=== PATIENT | male | born 1980 | race Caucasian/White ===

== ENCOUNTER 2018-12-23 08:22 | Inpatient (IN) | payer OTHER ==
[2018-12-23 08:47] VITALS: BMI 20.7
--- NOTE | 2018-12-23 09:21 | HP ---
COWS - Scale Resting Pulse: 0= [place] 80 or Below Sweatin= Chills/Flushing Restless Observation: 1= Difficult to Sit Still Pupil Size: 0= Normal to Room Light Bone or Joint Aches: 0= None Runny Nose/ Eye Tearin= Runny Nose/Eyes GI Upset > 30mins: 2= Nausea/Diarrhea Tremor Observation: 0= None Yawning Observation: 1= 1-2x During Session Anxiety or Irritability: 2=Irritable/Anxious Goose Flesh Skin: 0=Smooth Skin COWS Score: 9 CIWA Score - Admission Criteria OASAS Guidelines: Admission for Medically Managed Detox: Requires at least one of the followin. CIWA greater than 12 2. Seizures within the past 24 hours 3. Delirium tremens within the past 24 hours 4. Hallucinations within the past 24 hours 5. Acute intervention needed for co occurring medical disorder 6. Acute intervention needed for co occurring psychiatric disorder 7. Severe withdrawal that cannot be handled at a lower level of care (continued vomiting, continued diarrhea, abnormal vital signs) requiring intravenous medication and/or fluids 8. Admission ROS [facility] Allergies/Adverse Reactions: Allergies Allergy/AdvReac Type Severity Reaction Status Date / Time No Known Allergies Allergy Verified 12/23/18 08:36 History of Present Illness: pt here requesting detox from heroin , reports 7-8 bags/day ivdu in [place] , needles from pharmacy , denies sharing , or re-using, + abscess , denies OD . First age of use 12 , sober 15 , relapsed " I don't remember when " . Latest used 2 am , current symptoms as above. Previously in [facility] 8 years ago MDD 60 mg x 2 =3 years, completed program. Prior detox " a long time ago " . states went to [facility] this morning and was picked up by chair car driver and brought to this facility , did not see medical staff @ [place] . cocaine : as above ivdu xanax - rx tobacco : 6 cigs/day cannabis : occasional etoh : denies denies other illicits This report was requested by: Marissa Messina | Reference #: [id number] Others' Prescriptions Patient Name: Jakub Larios Date: 1980 Address: [address] [place] [address] Sex: Male Rx Written Rx Dispensed Drug Quantity Days Supply Prescriber Name 08/11/2018 08/11/2018 alprazolam 1 mg tablet 60 30 Destin Morelos MD 08/11/2018 08/11/2018 zolpidem tartrate 10 mg tablet 30 30 Destin Morelos MD 07/14/2018 07/14/2018 alprazolam 1 mg tablet 60 30 Destin Morelos MD 07/14/2018 07/14/2018 zolpidem tartrate 10 mg tablet 30 30 Destin Morelos MD 06/09/2018 06/15/2018 zolpidem tartrate 10 mg tablet 30 30 Destin Morelos MD 06/09/2018 06/15/2018 alprazolam 1 mg tablet 60 30 Destin Morelos MD 05/19/2018 05/19/2018 alprazolam 0.5 mg tablet 60 30 Destin Morelos MD 05/19/2018 05/19/2018 zolpidem tartrate 10 mg tablet 30 30 Destin Morelos MD 01/11/2018 01/11/2018 alprazolam 0.5 mg tablet 60 30 Destin Morelos MD * - Drugs marked with an asterisk are compound drugs. If the compound drug is made up of more than one controlled substance, then each controlled pmhx : denies pshx : left inguinal hernia 5 yrs ago psych : depression , bipolar d/o , denies SI / HI shx : homeless Exam Limitations: No Limitations - Ebola screening Have you traveled outside of the country in the last 21 days: No Have you had contact with anyone from an Ebola affected area: No - Review of Systems Constitutional: No Symptoms Reported EENT: reports: See HPI Respiratory: reports: No Symptoms reported Cardiac: reports: No Symptoms Reported GI: reports: See HPI : reports: No Symptoms Reported Musculoskeletal: reports: No Symptoms Reported Integumentary: reports: No Symptoms Reported Neuro: reports: No Symptoms reported Endocrine: reports: No Symptoms Reported Psychiatric: reports: Orientated x3, Anxious Patient History - Smoking Cessation Smoking history: Current every day smoker Have you smoked in the past 12 months: Yes Hx Chewing Tobacco Use: No Initiated information on smoking cessation: No - Substances abused Cocaine Substance route: Injection Frequency: Daily Amount used: 7 bags Age of first use: 12 Heroin Substance route: Injection Frequency: Daily Amount used: 7 bags Age of first use: 12 Family Disease History - Family Disease History Family History: Denies Admission Physical Exam [facility] - Vital Signs Vital Signs: Vital Signs - 24 hr 12/23/18 12/23/18 08:43 09:09 Temperature 98.2 F 98.2 F Pulse Rate 64 64 Respiratory 18 18 Rate Blood Pressure 126/69 126/69 - Physical General Appearance: Yes: No Apparent Distress HEENTM: Yes: EOMI, Hearing grossly Normal, Normocephalic, Normal Voice, Nasal Congestion, Rhinorrhea Respiratory: Yes: Lungs Clear, Normal Breath Sounds, No Respiratory Distress, No Accessory Muscle Use Neck: Yes: No masses,lesions,Nodules, Trachea in good position Cardiology: Yes: Regular Rhythm, Regular Rate, S1, S2 Abdominal: Yes: Non Tender, Soft Musculoskeletal: Yes: Gait Steady Extremities: Yes: Non-Tender Neurological: Yes: Fully Oriented, Alert, Motor Strength 5/5, Normal Mood/Affect Integumentary: Yes: Track Rios, Other (left antecubital area of edema @ IVDU site , no erythema, no tenderness right antecubital area of scarring from previous abscess .) - Diagnostic (1) Opioid dependence Current Visit: Yes Status: Acute Qualifiers: Substance use status: with intoxication (2) Cocaine dependence Current Visit: Yes Status: Chronic Qualifiers: Substance use status: uncomplicated Qualified Code(s): F14.20 - Cocaine dependence, uncomplicated (3) Nicotine dependence Current Visit: Yes Status: Acute Qualifiers: Nicotine product type: cigarettes Cleared for Admission [facility] - Detox or Rehab [facility] Level of Care: Medically Supervised 2Day Detox Regimen/Protocol: Methadone Breathalyzer - Breathalyzer Breathalyzer: 0 Urine Drug Screen - Test Device Lot number: [id number] Expiration date: 09/29/19 - Control Is test valid?: Yes - Results Drug screen NEGATIVE: No Urine drug screen results: THC-Marijuana, MICHELLE-Cocaine, MOP-Opiates, BZO- Benzodiazepines Inpatient Rehab Admission - Rehab Decision to Admit Inpatient rehab admission?: No
[2018-12-23] MEDS ORDERED: MAGNESIUM CITRATE 300 ML BOTTLE PO PRN (09:37)
[2018-12-23] MEDS ORDERED: ACETAMINOPHEN 325 MG TABLET (FP) PO PRN ×2 (09:37)
[2018-12-23] MEDS ORDERED: MENTHOL/PHENOL 1 EACH UD MM PRN (09:37)
[2018-12-23] MEDS ORDERED: IBUPROFEN 400 MG TABLET (FP) PO PRN (09:37)
[2018-12-23] MEDS ORDERED: BISMUTH SUBSALICYLATE 262 MG/15 ML BTL PO PRN (09:37)
[2018-12-23] MEDS ORDERED: MELATONIN 5 MG TABLETS PO PRN (09:37)
[2018-12-23] MEDS ORDERED: MAGNESIUM HYDROX 2400MG/30ML ORAL SUSPENSION 30 ML CUP PO PRN (09:37)
[2018-12-23] MEDS ORDERED: NICOTINE POLACRILEX 2 MG GUM BUC PRN (09:37)
[2018-12-23] MEDS ORDERED: MAG HYDROX/AL HYDROX/SIMETH 30 ML UNIT-DOSE CUP PO PRN (09:37)
[2018-12-23] MEDS ORDERED: cloNIDine HCL 0.1 MG TABLET PO PRN (11:37)
[2018-12-23] MEDS ORDERED: METHADONE HCL 10 MG TABLET (FOR DETOX USE ONLY) PO ONE (11:37)
[2018-12-23] MEDS: PRENATAL VITAMINS W/ FOLIC ACID TABLET (FP) PO SCH (12:00)
[2018-12-23] MEDS: BACITRACIN/POLYMYXIN B SULFATE 15 GM TUBE TP SCH ×2 (12:00→21:09)
--- NOTE | 2018-12-23 14:29 | CONSULT ---
[facility] Psychiatric Consult - Data Date of interview: 12/23/18 Admission source: [facility] Identifying data: First admission to [facility] for this 38 y/o male self-referred for detoxification (heroin, cocaine). Seen at [address] [place] [address]. Patient is single, a father of four, homeless, unemployed and supporetd on SSI benefits. Substance Abuse History: Confirmed by patient in this interview. Details in current [facility] report as follows : Smoking history: Current every day smoker. Have you smoked in the past 12 months: Yes. Hx Chewing Tobacco Use: No. Initiated information on smoking cessation: No. - Substances abused. Cocaine. Substance route: Injection. Frequency: Daily. Amount used: 7 bags. Age of first use: 12. Heroin. Substance route: Injection. Frequency: Daily. Amount used: 7 bags. Age of first use: 12 Medical History: Patient endorses good general health. Noted history of left inguinal herniorraphy. Psychiatric History: Patient admits to a history of multiple psychiatric hospitalizations ([facility], [facility], [facility]) . Diagnosed with Bipolar Disorder. Mr Larios is currently followed, by Dr Morelos, at [facility] in the [place]. Maintained on seroquel 400 mg/hs. Significant history of suicide attempts via self-mutilation (scars visible on upper extremities + abdomen). Physical/Sexual Abuse/Trauma History: Patient denies. Additional Comment: Urine drug screen results: THC-Marijuana, MICHELLE-Cocaine, MOP- Opiates, BZO-Benzodiazepines. Noted. Mental Status Exam - Mental Status Exam Alert and Oriented to: Time, Place, Person Cognitive Function: Good Patient Appearance: Unkempt, Disheveled Mood: Nervous, Withdrawn Affect: Mood Congruent, Constricted Patient Behavior: Fatigued, Appropriate, Cooperative Speech Pattern: Clear, Appropriate (bilingual) Voice Loudness: Normal Thought Process: Goal Oriented Thought Disorder: Not Present Hallucinations: Denies Suicidal Ideation: Denies Homicidal Ideation: Denies Insight/Judgement: Poor Sleep: Poorly, Difficulty falling asleep Appetite: Good Muscle strength/Tone: Normal Gait/Station: Normal Psychiatric Findings - Problem List ([place] 1, 2,3) (1) Opioid dependence Current Visit: Yes Status: Chronic Qualifiers: Substance use status: with intoxication (2) Cocaine dependence Current Visit: Yes Status: Chronic Qualifiers: Substance use status: uncomplicated Qualified Code(s): F14.20 - Cocaine dependence, uncomplicated (3) Nicotine dependence Current Visit: Yes Status: Chronic Qualifiers: Nicotine product type: cigarettes (4) Substance induced mood disorder Current Visit: Yes Status: Chronic (5) History of bipolar disorder Current Visit: Yes Status: Chronic - Initial Treatment Plan Initial Treatment Plan: Psychoeducation. Sleep hygiene. Detoxification. NA meetings. Seroquel 200 mg po hs (resumed at the patient's specific request). Mr Larios gave verbal consent to MD. Bryson.
--- NOTE | 2018-12-23 14:41 | EKG ---
Test Reason : Blood Pressure : / mmHG Vent. Rate : 058 BPM Atrial Rate : 058 BPM P-R Int : 116 ms QRS Dur : 104 ms QT Int : 450 ms P-R-T Axes : 081 042 055 degrees QTc Int : 441 ms SINUS BRADYCARDIA INCOMPLETE RIGHT BUNDLE BRANCH BLOCK BORDERLINE ECG NO PREVIOUS ECGS AVAILABLE Confirmed by WHIT TROY, RASTA ([id number]) on 12/23/2018 2:40:53 PM Referred By: Confirmed By:RASTA SHERMAN MD
[2018-12-23] MEDS: hydrOXYzine HCL 25 MG TABLET (FP) PO PRN (21:08)
[2018-12-23] MEDS ORDERED: QUEtiapine FUMARATE 200 MG TABLET PO SCH (22:00)
[2018-12-23] MEDS ORDERED: THIAMINE HCL 100 MG TABLET (FP) PO SCH (22:00)
[2018-12-24] MEDS ORDERED: METHADONE HCL 5 MG TABLET (FOR DETOX USE ONLY) PO ONE (10:00)
[2018-12-24] MEDS: BACITRACIN/POLYMYXIN B SULFATE 15 GM TUBE TP SCH (10:01)
[2018-12-24] MEDS: PRENATAL VITAMINS W/ FOLIC ACID TABLET (FP) PO SCH (10:04)
[2018-12-24 10:41] LABS: HEMATOCRIT 32.1 % (35.4-49); HEMOGLOBIN 10.7 GM/dL (11.7-16.9); MCH 27.9 pg (25.7-33.7); MCHC 33.4 g/dl (32.0-35.9); MEAN CELL VOLUME 83.5 fl (80-96); MEAN PLT VOLUME 7.5 fl (7.5-11.1); PLATELET COUNT 376 K/MM3 (134-434); RBC 3.84 M/mm3 (4.00-5.60); RDW 14.4 % (11.9-15.9); WHITE BLOOD COUNT 8.2 K/mm3 (4.0-10.0)
[2018-12-24 11:22] LABS: ALBUMIN 2.8 g/dl (3.4-5.0); BILIRUBIN,TOTAL 0.2 mg/dL (0.2-1); BLOOD UREA NITROGEN 15.1 mg/dL (7-18); CALCIUM 8.6 mg/dL (8.5-10.1); CREATININE 0.8 mg/dL (0.55-1.3); POTASSIUM 3.8 mmol/L (3.5-5.1); TOT PROT 6.3 g/dl (6.4-8.2)
[2018-12-24] MEDS: hydrOXYzine HCL 25 MG TABLET (FP) PO PRN (13:14)
--- NOTE | 2018-12-24 17:10 | PN ---
BHS COWS - Scale Resting Pulse: 0= [place] 80 or Below Sweatin= Chills/Flushing Restless Observation: 1= Difficult to Sit Still Pupil Size: 0= Normal to Room Light Bone or Joint Aches: 0= None Runny Nose/ Eye Tearin= None GI Upset > 30mins: 0= None Tremor Observation of Outstretched Hands: 0= None Yawning Observation: 1= 1-2x During Session Anxiety or Irritability: 2=Irritable/Anxious Goose Flesh Skin: 3=Piloerection COWS Score: 8 BHS Progress Note (SOAP) Subjective: Interrupted Sleep, Anxious. Objective: PATIENT A & O X 2 (UNCERTAIN ABOUT CURRENT DAY / DATE). PATIENT OBSERVED AMBULATING ON UNIT UNASSISTED. IN NO ACUTE DISTRESS. 12/24/18 17:12 Vital Signs Temperature 97.4 F L 12/24/18 13:30 Pulse Rate 75 12/24/18 13:30 Respiratory Rate 18 12/24/18 13:30 Blood Pressure 125/80 12/24/18 13:30 O2 Sat by Pulse Oximetry (%) Laboratory Tests 12/24/18 12/24/18 12/24/18 07:30 07:30 07:30 WBC 8.2 RBC 3.84 L Hgb 10.7 L Hct 32.1 L MCV 83.5 MCH 27.9 MCHC 33.4 RDW 14.4 Plt Count 376 MPV 7.5 Sodium 142 Potassium 3.8 Chloride 110 H Carbon Dioxide 29 Anion Gap 4 L BUN 15.1 Creatinine 0.8 Est GFR (CKD-EPI)AfAm 129.51 Est GFR (CKD-EPI)NonAf 111.74 Random Glucose 96 Calcium 8.6 Total Bilirubin 0.2 AST 16 ALT 25 Alkaline Phosphatase 93 Total Protein 6.3 L Albumin 2.8 L RPR Titer Nonreactive HIV 1&2 Antibody Screen HIV P24 Antigen 12/24/18 07:30 WBC RBC Hgb Hct MCV MCH MCHC RDW Plt Count MPV Sodium Potassium Chloride Carbon Dioxide Anion Gap BUN Creatinine Est GFR (CKD-EPI)AfAm Est GFR (CKD-EPI)NonAf Random Glucose Calcium Total Bilirubin AST ALT Alkaline Phosphatase Total Protein Albumin RPR Titer HIV 1&2 Antibody Screen Negative HIV P24 Antigen Negative LABS NOTED. Assessment: 12/24/18 17:12 WITHDRAWAL SYMPTOMS. ANEMIA. Plan: CONTINUE DETOX. PATIENT IS CURRENTLY RECEIVING DAILY MVI CONTAINING B VITAMINS AND IRON WHILE ADMITTED FOR DETOX.
[2018-12-24 18:34] VITALS: BP 131/86; PULSE 73; TEMP 99.7
--- NOTE | 2018-12-24 19:39 | PN ---
BHS Progress Note Note: Refused to stay, despite encouragement. Given copy of labs and EKG. Encouraged to f/u w/ PCP and MH Provider.
--- NOTE | 2018-12-24 19:39 | DS ---
[facility] Detox Discharge Summary Admission Date: 12/23/18 Discharge Date: 12/24/18 - History Present History: Cannabis Dependence, Cocaine Dependence, Opioid Dependence Additional Comments: pt here requesting detox from heroin. Reports 7-8 bags/day IVDU Pertinent Past History: Heroin use disorder since age 12. Previously in [facility] 8 years . Cocaine use disorder since age 12. ivdu Tobacco : 6 cigs/day Cannabis : occasional - Physical Exam Results Vital Signs: Vital Signs Temperature 99.7 F H 12/24/18 18:32 Pulse Rate 73 12/24/18 18:32 Respiratory Rate 16 12/24/18 18:32 Blood Pressure 131/86 12/24/18 18:32 O2 Sat by Pulse Oximetry (%) Pertinent Admission Physical Exam Findings: Patient admitted to detox w/ opioid withdrawal symptoms. Laboratory Last Values WBC 8.2 K/mm3 (4.0-10.0) 12/24/18 07:30 RBC 3.84 M/mm3 (4.00-5.60) L 12/24/18 07:30 Hgb 10.7 GM/dL (11.7-16.9) L 12/24/18 07:30 Hct 32.1 % (35.4-49) L 12/24/18 07:30 MCV 83.5 fl (80-96) 12/24/18 07:30 MCH 27.9 pg (25.7-33.7) 12/24/18 07:30 MCHC 33.4 g/dl (32.0-35.9) 12/24/18 07:30 RDW 14.4 % (11.9-15.9) 12/24/18 07:30 Plt Count 376 K/MM3 (134-434) 12/24/18 07:30 MPV 7.5 fl (7.5-11.1) 12/24/18 07:30 Sodium 142 mmol/L (136-145) 12/24/18 07:30 Potassium 3.8 mmol/L (3.5-5.1) 12/24/18 07:30 Chloride 110 mmol/L (98-107) H 12/24/18 07:30 Carbon Dioxide 29 mmol/L (21-32) 12/24/18 07:30 Anion Gap 4 MMOL/L (8-16) L 12/24/18 07:30 BUN 15.1 mg/dL (7-18) 12/24/18 07:30 Creatinine 0.8 mg/dL (0.55-1.3) 12/24/18 07:30 Est GFR (CKD-EPI)AfAm 129.51 12/24/18 07:30 Est GFR (CKD-EPI)NonAf 111.74 12/24/18 07:30 Random Glucose 96 mg/dL (74-106) 12/24/18 07:30 Calcium 8.6 mg/dL (8.5-10.1) 12/24/18 07:30 Total Bilirubin 0.2 mg/dL (0.2-1) 12/24/18 07:30 AST 16 U/L (15-37) 12/24/18 07:30 ALT 25 U/L (13-61) 12/24/18 07:30 Alkaline Phosphatase 93 U/L (45-117) 12/24/18 07:30 Total Protein 6.3 g/dl (6.4-8.2) L 12/24/18 07:30 Albumin 2.8 g/dl (3.4-5.0) L 12/24/18 07:30 RPR Titer Nonreactive (NONREACTIVE) 12/24/18 07:30 HIV 1&2 Antibody Screen Negative 12/24/18 07:30 HIV P24 Antigen Negative 12/24/18 07:30 Labs reviewed. Patient encouraged to f/u w/ PCP. - Treatment Hospital Course: Detox Protocol Followed (Patient did not complete detox protocol) - Medication Discharge Medications: Ambulatory Orders Ambien 10 mg PO HS 12/23/18 Quetiapine Fumarate "Xr" [Seroquel Xr -] 400 mg PO BID 12/23/18 - Diagnosis (1) Opioid dependence with withdrawal Status: Acute (2) Cocaine dependence Status: Chronic Qualifiers: Substance use status: uncomplicated Qualified Code(s): F14.20 - Cocaine dependence, uncomplicated (3) History of bipolar disorder Status: Chronic (4) Nicotine dependence Status: Chronic Qualifiers: Nicotine product type: cigarettes - AMA Did Patient Leave Against Medical Advice: Yes (Refused to stay, despite encouragement.)
[2018-12-25] MEDS ORDERED: METHADONE HCL 10 MG TABLET (FOR DETOX USE ONLY) PO ONE (10:00)
[2018-12-26] MEDS ORDERED: METHADONE HCL 5 MG TABLET (FOR DETOX USE ONLY) PO ONE (06:00)
== END 2018-12-24 19:30 | disposition left against medical advice (07) | DRG 770 ==
LOC: YASAS 08:22 → Y3N 10:00
PROVIDERS: ADMIT Surgery; ATTEND Surgery
PROC: HZ2ZZZZ Detoxification Services for Substance Abuse Treatment (ICD-10-PCS; principal; 2018-12-23)
DX: F11.23 Opioid dependence with withdrawal (principal); F14.20 Cocaine dependence, uncomplicated; F12.20 Cannabis dependence, uncomplicated; F17.210 Nicotine dependence, cigarettes, uncomplicated; F19.24 Other psychoactive substance dependence with psychoactive substance-induced mood disorder; D64.9 Anemia, unspecified; Z86.59 Personal history of other mental and behavioral disorders
CPT/HCPCS: 36415; 80053; 85027; 86593; 87389; 93005; 93010

== ENCOUNTER 2019-02-05 09:11 | Inpatient (IN) | payer OTHER ==
[2019-02-05 10:20] VITALS: BMI 21.2
--- NOTE | 2019-02-05 12:13 | HP ---
"COWS - Scale Resting Pulse: 0= [place] 80 or Below Sweatin= Chills/Flushing Restless Observation: 1= Difficult to Sit Still Pupil Size: 0= Normal to Room Light Bone or Joint Aches: 1= Mild Discomfort Runny Nose/ Eye Tearin= Runny Nose/Eyes GI Upset > 30mins: 2= Nausea/Diarrhea Tremor Observation: 2= Slight Tremor Visible Yawning Observation: 1= 1-2x During Session Anxiety or Irritability: 2=Irritable/Anxious Goose Flesh Skin: 3=Piloerection COWS Score: 15 Admission ROS BHS - HPI Chief Complaint: I want to stop feeling like shit, like garbage, I'm tired of living my life to keep on this shit Allergies/Adverse Reactions: Allergies Allergy/AdvReac Type Severity Reaction Status Date / Time No Known Allergies Allergy Verified 12/23/18 08:36 History of Present Illness: 38 yo gentleman here for detox from opiates. Urine tox + oxy, methamamphetamine and methadone but denies using these separately - states mixed together with heroin. Denies drinking alcohol. No seizures or overdose but does have black outs. History of methadone program years ago - cannot remember when or why he stopped going but wants to go back on a methadone program. States he was in [place] ED yesterday seeking detox and was referred here. Last here December 23but only stayed one day- states he will complete treatment this time. He is homeless, lives in a fci. Patient with multiple scabbed lesions on his body - states he saw a doctor who told him it was related to his drug use as he constantly picks and scratches at himself. No longer getting prescribed xanax (see below [facility]) - buys on street when he can get it. [facility] Search Terms: jakub larios, 1980 Search Date: 02/05/2019 12:08:05 PM The Drug Utilization Report below displays all of the controlled substance prescriptions, if any, that your patient has filled in the last twelve months. The information displayed on this report is compiled from pharmacy submissions to the Department, and accurately reflects the information as submitted by the pharmacies. This report was requested by: Sara Winters | Reference #: [id number] Others' Prescriptions Patient Name: Jakub Larios Date: 1980 Address: [address] [place] [address] Sex: Male Rx Written Rx Dispensed Drug Quantity Days Supply Prescriber Name 08/11/2018 08/11/2018 alprazolam 1 mg tablet 60 30 Destin Morelos MD 08/11/2018 08/11/2018 zolpidem tartrate 10 mg tablet 30 30 Destin Morelos MD 07/14/2018 07/14/2018 alprazolam 1 mg tablet 60 30 Destin Morelos MD 07/14/2018 07/14/2018 zolpidem tartrate 10 mg tablet 30 30 Destin Morelos MD 06/09/2018 06/15/2018 zolpidem tartrate 10 mg tablet 30 30 Destin Morelos MD 06/09/2018 06/15/2018 alprazolam 1 mg tablet 60 30 Destin Morelos MD 05/19/2018 05/19/2018 alprazolam 0.5 mg tablet 60 30 Destin Morelos MD 05/19/2018 05/19/2018 zolpidem tartrate 10 mg tablet 30 30 Destin Morelos MD * Exam Limitations: Clinical Condition - Ebola screening Have you traveled outside of the country in the last 21 days: No (N) Have you had contact with anyone from an Ebola affected area: No Do you have a fever: No - Review of Systems Constitutional: Chills, Loss of Appetite, Malaise, Changes in sleep, Weakness EENT: reports: Blurred Vision, Nose Congestion Respiratory: reports: Wheezing Cardiac: reports: No Symptoms Reported GI: reports: Constipated, Nausea, Indigestion, Abdominal cramping : reports: Dysuria Musculoskeletal: reports: Back Pain, Joint Pain, Muscle Pain Integumentary: reports: Lesions Neuro: reports: Headache, Tremors, Weakness Endocrine: reports: No Symptoms Reported Hematology: reports: No Symptoms Reported Psychiatric: reports: Judgement Intact, Mood/Affect Appropiate, Orientated x3, Anxious Other Systems: Reviewed and Negative Patient History - Patient Medical History Hx Asthma: No Hx Chronic Obstructive Pulmonary Disease (COPD): No Hx Cancer: No Hx Cardiac Disorders: No Hx Hypertension: No Hx Hypercholesterolemia: No Hx Pacemaker: No HX Cerebrovascular Accident: No Hx Seizures: No Hx Diabetes: No Hx Gastrointestinal Disorders: No Hx Liver Disease: Yes (treated hep C with oral meds) Hx Genitourinary Disorders: No Hx Sexually Transmitted Disorders: No Hx Renal Disease (ESRD): No Hx Thyroid Disease: No Hx Human Immunodeficiency Virus (HIV): No Hx Hepatitis C: Yes (treated) Hx Depression: Yes (hx hospitalizations - hx meds) Hx Suicide Attempt: Yes (age 10 slit wrists - ) Hx Bipolar Disorder: Yes Hx Schizophrenia: No - Patient Surgical History Past Surgical History: No Hx Neurologic Surgery: No Hx Cataract Extraction: No Hx Cardiac Surgery: No Hx Lung Surgery: No Hx Breast Surgery: No Hx Breast Biopsy: No Hx Abdominal Surgery: Yes (left hernia repair 2012) Hx Appendectomy: No Hx Cholecystectomy: No Hx Genitourinary Surgery: No Hx Section: No Hx Orthopedic Surgery: No Anesthesia Reaction: No - PPD History Previous Implant?: Yes (never read - patient left AMA) Documented Results: Negative w/o proof Implanted On Prior [facility] Admission?: Yes PPD to be Administered?: Yes - Reproductive History Patient is a Female of Child Bearing Age (11 -55 yrs old): No - Smoking Cessation Smoking history: Current every day smoker Have you smoked in the past 12 months: Yes Aproximately how many cigarettes per day: 6 Hx Chewing Tobacco Use: No Initiated information on smoking cessation: Yes 'Breaking Loose' booklet given: 02/05/19 (give on floor) - Substance & Tx. History Hx Alcohol Use: No Hx Substance Use: Yes Substance Use Type: Cocaine, Heroin, Marijuana, Opiates, Tranquilizers Hx Substance Use Treatment: Yes (detox, rehab, [facility]) - Substances abused Cocaine Substance route: Injection Frequency: Daily Amount used: 12 bags Age of first use: 12 Date of last use: 02/04/19 Heroin Substance route: Injection Frequency: Daily Amount used: 12-14 bags Age of first use: 12 Date of last use: 02/04/19 Marijuana/Hashish Substance route: Smoking Frequency: Daily Amount used: 2 blunts Age of first use: 10 Date of last use: 02/04/19 Alprazolam (Xanax) Substance route: Oral Frequency: 1-2 times per week Amount used: two 2mg pills Age of first use: 13 Date of last use: 02/03/19 Family Disease History - Family Disease History Family Disease History: Respiratory: Sister (two - living - asthma), Other: Father (, suicide), Mother (living - healthy ), Sister, Son (one - age 12 - healthy), Daughter (three ages 20,17,12 - healthy) Admission Physical Exam [facility] - Vital Signs Vital Signs: Vital Signs - 24 hr 02/05/19 10:16 Temperature 97.9 F Pulse Rate 56 L Respiratory 18 Rate Blood Pressure 98/61 - Physical General Appearance: Yes: Nourished, Appropriately Dressed, Moderate Distress, Thin, Tremorous, Anxious HEENTM: Yes: EOMI, Hearing grossly Normal, Normocephalic, Normal Voice, Pharynx Normal, Nasal Congestion, Rhinorrhea Respiratory: Yes: No Respiratory Distress, Rhonchi Neck: Yes: No masses,lesions,Nodules, Supple Breast: Yes: Breast Exam Deferred Cardiology: Yes: Regular Rhythm, Bradycardia Abdominal: Yes: Flat, Soft Genitourinary: Yes: Dysuria Back: Yes: Normal Inspection Musculoskeletal: Yes: full range of Motion, Gait Steady, Muscle Pain Extremities: Yes: Normal Inspection, Normal Range of Motion, Tremors Neurological: Yes: Fully Oriented, Alert, Normal Mood/Affect, Normal Response Integumentary: Yes: Normal Color, Warm, Track Rios (track rios left antecubital fossa -no abscess noted), Other (scattered skin lesions and scabs over arms, face, torso and legs - state chronic from crack use which makes him pick at himself) Lymphatic: Yes: Within Normal Limits - Diagnostic (1) Opioid dependence with withdrawal Current Visit: Yes Status: Chronic (2) Sedative, hypnotic or anxiolytic dependence with withdrawal, uncomplicated Current Visit: Yes Status: Chronic (3) Intravenous cocaine abuse Current Visit: Yes Status: Chronic (4) Cannabis dependence Current Visit: Yes Status: Chronic (5) Nicotine dependence Current Visit: Yes Status: Chronic Qualifiers: Nicotine product type: cigarettes Substance use status: uncomplicated Qualified Code(s): F17.210 - Nicotine dependence, cigarettes, uncomplicated (6) Skin lesion due to intravenous drug abuse Current Visit: Yes Status: Chronic (7) Hepatitis C virus infection cured after antiviral drug therapy Current Visit: Yes Status: Chronic Cleared for Admission [facility] - Detox or Rehab [facility] Level of Care: Medically Managed Detox Regimen/Protocol: Methadone Breathalyzer - Breathalyzer Breathalyzer: 0 Urine Drug Screen - Test Device Lot number: [id number] Expiration date: 10/29/20 - Control Is test valid?: Yes - Results Drug screen NEGATIVE: No Urine drug screen results: THC-Marijuana, MICHELLE-Cocaine, MET-Methamphetamine, FEN- Fentanyl, MOP-Opiates, OXY-Oxycodone, MTD-Methadone, BZO-Benzodiazepines Inpatient Rehab Admission - Rehab Decision to Admit Inpatient rehab admission?: No"
[2019-02-05] MEDS ORDERED: MENTHOL/PHENOL 1 EACH UD MM PRN (12:22)
[2019-02-05] MEDS ORDERED: METHADONE HCL 10 MG TABLET (FOR DETOX USE ONLY) PO ONE (12:22)
[2019-02-05] MEDS ORDERED: ACETAMINOPHEN 325 MG TABLET (FP) PO PRN ×2 (12:22)
[2019-02-05] MEDS ORDERED: IBUPROFEN 400 MG TABLET (FP) PO PRN (12:22)
[2019-02-05] MEDS ORDERED: MAGNESIUM CITRATE 300 ML BOTTLE PO PRN (12:22)
[2019-02-05] MEDS ORDERED: NICOTINE POLACRILEX 4 MG GUM BUC PRN (12:22)
[2019-02-05] MEDS ORDERED: hydrOXYzine PAMOATE 25 MG CAPSULE (FP) PO PRN (12:22)
[2019-02-05] MEDS ORDERED: MELATONIN 5 MG TABLETS PO PRN (12:22)
[2019-02-05] MEDS ORDERED: clonazePAM 0.5 MG TABLET PO PRN (12:22)
[2019-02-05] MEDS ORDERED: MAG HYDROX/AL HYDROX/SIMETH 30 ML UNIT-DOSE CUP PO PRN (12:22)
[2019-02-05] MEDS ORDERED: METHOCARBAMOL 500 MG TABLET PO PRN (12:22)
[2019-02-05] MEDS ORDERED: cloNIDine HCL 0.1 MG TABLET PO PRN (12:22)
[2019-02-05] MEDS ORDERED: MAGNESIUM HYDROX 2400MG/30ML ORAL SUSPENSION 30 ML CUP PO PRN (12:22)
[2019-02-05] MEDS ORDERED: BISMUTH SUBSALICYLATE 524 MG/30 ML UD PO PRN (12:22)
[2019-02-05] MEDS: MUPIROCIN 2% TOPICAL OINTMENT 22 GM TUBE TP SCH ×2 (19:22→22:59)
[2019-02-05] MEDS ORDERED: QUEtiapine FUMARATE 200 MG TABLET PO SCH (22:00)
[2019-02-05] MEDS: THIAMINE HCL 100 MG TABLET (FP) PO SCH (22:58)
[2019-02-06] MEDS ORDERED: METHADONE HCL 10 MG TABLET (FOR DETOX USE ONLY) ONE (09:50)
[2019-02-06] MEDS ORDERED: METHADONE HCL 5 MG TABLET (FOR DETOX USE ONLY) ONE (09:51)
[2019-02-06] MEDS ORDERED: METHADONE (DETOX) 20 MG, METHADONE (DETOX) 5 MG PO ONE (10:00)
[2019-02-06 10:21] LABS: BILIRUBIN,TOTAL 0.3 mg/dL (0.2-1); BLOOD UREA NITROGEN 13.2 mg/dL (7-18); CALCIUM 8.5 mg/dL (8.5-10.1); CREATININE 0.9 mg/dL (0.55-1.3); POTASSIUM 3.7 mmol/L (3.5-5.1); TOT PROT 6.3 g/dl (6.4-8.2)
[2019-02-06 10:24] LABS: HEMATOCRIT 33.9 % (35.4-49); MCH 27.8 pg (25.7-33.7); MCHC 32.4 g/dl (32.0-35.9); MEAN CELL VOLUME 85.9 fl (80-96); MEAN PLT VOLUME 7.9 fl (7.5-11.1); PLATELET COUNT 321 K/MM3 (134-434); RBC 3.94 M/mm3 (4.00-5.60); RDW 17.1 % (11.9-15.9); WHITE BLOOD COUNT 5.2 K/mm3 (4.0-10.0)
[2019-02-06] MEDS: MUPIROCIN 2% TOPICAL OINTMENT 22 GM TUBE TP SCH ×2 (11:00→21:52)
[2019-02-06] MEDS: PRENATAL VITAMINS W/ FOLIC ACID TABLET (FP) PO SCH (11:06)
--- NOTE | 2019-02-06 13:39 | PN ---
[facility] Progress Note Note: Patient approached at bedtime. He told food writer:" I don't feel well, I cannot talk now"
--- NOTE | 2019-02-06 14:36 | PN ---
BHS COWS - Scale Resting Pulse: 0= [place] 80 or Below Sweatin= Chills/Flushing Restless Observation: 3= Extraneous Movement Pupil Size: 0= Normal to Room Light Bone or Joint Aches: 2= Severe Diffuse Aches Runny Nose/ Eye Tearin= Runny Nose/Eyes GI Upset > 30mins: 2= Nausea/Diarrhea Tremor Observation of Outstretched Hands: 2= Slight Tremor Visible Yawning Observation: 0= None Anxiety or Irritability: 2=Irritable/Anxious Goose Flesh Skin: 0=Smooth Skin COWS Score: 14 BHS Progress Note (SOAP) Subjective: Angry, patient stated he has all withdrawal symptoms, refused to elaborate but remained angry Objective: 02/06/19 14:34 Last Vital Signs Temp Pulse Resp BP Pulse Ox 98.1 F 66 18 144/83 02/06/19 09:29 02/06/19 09:29 02/06/19 09:29 02/06/19 09:29 Elevated b/p 144/83 Laboratory Tests 02/06/19 02/06/19 02/06/19 08:00 08:00 08:00 WBC 5.2 RBC 3.94 L Hgb 11.0 L Hct 33.9 L MCV 85.9 MCH 27.8 MCHC 32.4 RDW 17.1 H Plt Count 321 MPV 7.9 Sodium 145 Potassium 3.7 Chloride 110 H Carbon Dioxide 29 Anion Gap 5 L BUN 13.2 Creatinine 0.9 Est GFR (CKD-EPI)AfAm 123.39 Est GFR (CKD-EPI)NonAf 106.46 Random Glucose 82 Calcium 8.5 Total Bilirubin 0.3 AST 35 ALT 42 Alkaline Phosphatase 100 Total Protein 6.3 L Albumin 3.0 L RPR Titer Nonreactive Labs reviewed: h/h 33.9 (mild anemia) Assessment: 02/06/19 14:35 Withdrawal sxs Plan: Continue detox Encouraged PO water intake
[2019-02-06] MEDS: COLLOIDAL OATMEAL 1 BAR EACH TP PRN (21:53)
[2019-02-06] MEDS: THIAMINE HCL 100 MG TABLET (FP) PO SCH (21:54)
[2019-02-07] MEDS ORDERED: METHADONE HCL 10 MG TABLET (FOR DETOX USE ONLY) PO ONE (10:00)
--- NOTE | 2019-02-07 10:00 | PN ---
BHS COWS - Scale Resting Pulse: 0= [place] 80 or Below Sweatin= Chills/Flushing Restless Observation: 1= Difficult to Sit Still Pupil Size: 0= Normal to Room Light Bone or Joint Aches: 1= Mild Discomfort Runny Nose/ Eye Tearin= Nasal Congestion GI Upset > 30mins: 1= Stomach Cramp Tremor Observation of Outstretched Hands: 2= Slight Tremor Visible Yawning Observation: 0= None Anxiety or Irritability: 1=Feels Anxious/Irritable Goose Flesh Skin: 0=Smooth Skin COWS Score: 8 BHS Progress Note (SOAP) Subjective: Patient improved and now with mild withdrawals. Only concern is his chronic skin condition. Objective: 02/07/19 09:59 BP: 118/75 P:75 R:18 T:97.9 Laboratory 02/06/19 02/06/19 02/06/19 08:00 08:00 08:00 WBC 5.2 K/mm3 K/mm3 (4.0-10.0) RBC 3.94 M/mm3 L M/mm3 (4.00-5.60) Hgb 11.0 GM/dL L GM/dL (11.7-16.9) Hct 33.9 % L % (35.4-49) MCV 85.9 fl fl (80-96) MCH 27.8 pg pg (25.7-33.7) MCHC 32.4 g/dl g/dl (32.0-35.9) RDW 17.1 % H % (11.9-15.9) Plt Count 321 K/MM3 K/MM3 (134-434) MPV 7.9 fl fl (7.5-11.1) Sodium 145 mmol/L mmol/L (136-145) Potassium 3.7 mmol/L mmol/L (3.5-5.1) Chloride 110 mmol/L H mmol/L (98-107) Carbon Dioxide 29 mmol/L mmol/L (21-32) Anion Gap 5 MMOL/L L MMOL/L (8-16) BUN 13.2 mg/dL mg/dL (7-18) Creatinine 0.9 mg/dL mg/dL (0.55-1.3) Est GFR (CKD-EPI)AfAm 123.39 Est GFR (CKD-EPI)NonAf 106.46 Random Glucose 82 mg/dL mg/dL (74-106) Calcium 8.5 mg/dL mg/dL (8.5-10.1) Total Bilirubin 0.3 mg/dL mg/dL (0.2-1) AST 35 U/L U/L (15-37) ALT 42 U/L U/L (13-61) Alkaline Phosphatase 100 U/L U/L (45-117) Total Protein 6.3 g/dl L g/dl (6.4-8.2) Albumin 3.0 g/dl L g/dl (3.4-5.0) RPR Titer Nonreactive (NONREACTIVE) Assessment: 02/07/19 10:00 1. Opioid Dependence with uncomplicated withdrawals Plan: 1. Patient encouraged to intake more PO fluids. Patient encouraged to stay under detox protocol and will continue.
[2019-02-07] MEDS: MUPIROCIN 2% TOPICAL OINTMENT 22 GM TUBE TP SCH ×2 (10:59→22:37)
[2019-02-07] MEDS: PRENATAL VITAMINS W/ FOLIC ACID TABLET (FP) PO SCH (10:59)
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
[2019-02-07] MEDS: TOPIRAMATE 25 MG TABLET (FP) PO SCH (15:30)
[2019-02-07] MEDS: QUEtiapine FUMARATE 100 MG TABLET (FP) PO SCH (22:28)
[2019-02-07] MEDS: traZODone HCL 50 MG TABLET (FP) PO SCH (22:28)
[2019-02-07] MEDS: THIAMINE HCL 100 MG TABLET (FP) PO SCH (22:28)
[2019-02-08] MEDS ORDERED: METHADONE (DETOX) 10 MG, METHADONE (DETOX) 5 MG PO ONE (10:00)
--- NOTE | 2019-02-08 10:05 | PN ---
BHS COWS - Scale Resting Pulse: 0= [place] 80 or Below Sweatin= No chills or Flushing Restless Observation: 1= Difficult to Sit Still Pupil Size: 1= Pupils >than Normal Bone or Joint Aches: 2= Severe Diffuse Aches Runny Nose/ Eye Tearin= Nasal Congestion GI Upset > 30mins: 1= Stomach Cramp Tremor Observation of Outstretched Hands: 1= Tremor [place], Not Seen Yawning Observation: 1= 1-2x During Session Anxiety or Irritability: 2=Irritable/Anxious Goose Flesh Skin: 0=Smooth Skin COWS Score: 10 BHS Progress Note (SOAP) Subjective: alert,irritable,anxious,interrupted sleep,pain in the body and back Objective: 02/08/19 10:05 Vital Signs Temperature 98.6 F 02/08/19 09:37 Pulse Rate 62 02/08/19 09:37 Respiratory Rate 18 02/08/19 09:37 Blood Pressure 125/71 02/08/19 09:37 O2 Sat by Pulse Oximetry (%) Assessment: 02/08/19 10:05 withdrawal symptom Plan: continue detox methadone regimen
[2019-02-08] MEDS ORDERED: METHADONE HCL 10 MG TABLET (FOR DETOX USE ONLY) ONE (10:10)
[2019-02-08] MEDS ORDERED: METHADONE HCL 5 MG TABLET (FOR DETOX USE ONLY) ONE (10:10)
[2019-02-08] MEDS: PRENATAL VITAMINS W/ FOLIC ACID TABLET (FP) PO SCH (10:58)
[2019-02-08] MEDS: TOPIRAMATE 25 MG TABLET (FP) PO SCH (10:58)
[2019-02-08] MEDS: MUPIROCIN 2% TOPICAL OINTMENT 22 GM TUBE TP SCH ×2 (10:59→22:25)
[2019-02-08] MEDS: COLLOIDAL OATMEAL 1 BAR EACH TP PRN (16:03)
[2019-02-08] MEDS: traZODone HCL 50 MG TABLET (FP) PO SCH (22:25)
[2019-02-08] MEDS: QUEtiapine FUMARATE 100 MG TABLET (FP) PO SCH (22:25)
[2019-02-08] MEDS: THIAMINE HCL 100 MG TABLET (FP) PO SCH (22:25)
--- NOTE | 2019-02-09 09:32 | PN ---
BHS COWS - Scale Resting Pulse: 0= [place] 80 or Below Sweatin= No chills or Flushing Restless Observation: 1= Difficult to Sit Still Pupil Size: 1= Pupils >than Normal Bone or Joint Aches: 1= Mild Discomfort Runny Nose/ Eye Tearin= Nasal Congestion GI Upset > 30mins: 1= Stomach Cramp Tremor Observation of Outstretched Hands: 1= Tremor [place], Not Seen Yawning Observation: 0= None Anxiety or Irritability: 2=Irritable/Anxious Goose Flesh Skin: 0=Smooth Skin COWS Score: 8 BHS Progress Note (SOAP) Subjective: alert,irritable,anxious,interrupted sleep,pain in the body Objective: 02/09/19 09:31 Vital Signs Temperature 98.0 F 02/09/19 09:30 Pulse Rate 71 02/09/19 09:30 Respiratory Rate 18 02/09/19 09:30 Blood Pressure 113/61 02/09/19 09:30 O2 Sat by Pulse Oximetry (%) Assessment: 02/09/19 09:31 withdrawal symptom Plan: continue detox methadone regimen,discharge in am
[2019-02-09] MEDS ORDERED: METHADONE HCL 10 MG TABLET (FOR DETOX USE ONLY) PO ONE (10:00)
[2019-02-09] MEDS: PRENATAL VITAMINS W/ FOLIC ACID TABLET (FP) PO SCH (10:44)
[2019-02-09] MEDS: MUPIROCIN 2% TOPICAL OINTMENT 22 GM TUBE TP SCH ×2 (10:44→21:46)
[2019-02-09] MEDS: TOPIRAMATE 25 MG TABLET (FP) PO SCH (10:44)
[2019-02-09] MEDS: NICOTINE 21 MG/24 HOURS TOPICAL PATCH TD SCH (12:11)
[2019-02-09] MEDS: QUEtiapine FUMARATE 100 MG TABLET (FP) PO SCH (21:45)
[2019-02-09] MEDS: THIAMINE HCL 100 MG TABLET (FP) PO SCH (21:46)
[2019-02-09] MEDS: traZODone HCL 50 MG TABLET (FP) PO SCH (21:46)
[2019-02-10] MEDS ORDERED: METHADONE HCL 5 MG TABLET (FOR DETOX USE ONLY) PO ONE (06:00)
--- NOTE | 2019-02-10 09:00 | DS ---
[facility] Detox Discharge Summary Admission Date: 02/05/19 Discharge Date: 02/10/19 - History Present History: Cannabis Dependence, Cocaine Dependence, Opioid Dependence, Sedative Dependence - Physical Exam Results Vital Signs: Vital Signs Temperature 97.7 F 02/10/19 07:21 Pulse Rate 52 L 02/10/19 07:21 Respiratory Rate 18 02/10/19 07:21 Blood Pressure 114/71 02/10/19 07:21 O2 Sat by Pulse Oximetry (%) Pertinent Admission Physical Exam Findings: pt arrived in withdrawals Laboratory Tests 02/06/19 02/06/19 02/06/19 08:00 08:00 08:00 WBC 5.2 RBC 3.94 L Hgb 11.0 L Hct 33.9 L MCV 85.9 MCH 27.8 MCHC 32.4 RDW 17.1 H Plt Count 321 MPV 7.9 Sodium 145 Potassium 3.7 Chloride 110 H Carbon Dioxide 29 Anion Gap 5 L BUN 13.2 Creatinine 0.9 Est GFR (CKD-EPI)AfAm 123.39 Est GFR (CKD-EPI)NonAf 106.46 Random Glucose 82 Calcium 8.5 Total Bilirubin 0.3 AST 35 ALT 42 Alkaline Phosphatase 100 Total Protein 6.3 L Albumin 3.0 L RPR Titer Nonreactive TB (QFT) Incubation TB Test (QFT) Nil TB Test (QFT) Mitogen TB Test (QFT) Antigen TB Test (QFT) TB Positive Criteria 02/06/19 08:00 WBC RBC Hgb Hct MCV MCH MCHC RDW Plt Count MPV Sodium Potassium Chloride Carbon Dioxide Anion Gap BUN Creatinine Est GFR (CKD-EPI)AfAm Est GFR (CKD-EPI)NonAf Random Glucose Calcium Total Bilirubin AST ALT Alkaline Phosphatase Total Protein Albumin RPR Titer TB (QFT) Incubation TB Test (QFT) Nil 0.10 TB Test (QFT) Mitogen 5.77 TB Test (QFT) Antigen 0.14 TB Test (QFT) Negative TB Positive Criteria today pt is aaox3 ambulating no acute distress no s/s of withdrawals - Treatment Hospital Course: Detox Protocol Followed, Detoxed Safely, Responded well, Discharged Condition Good, Rehab Referral Accepted Patient has Accepted a Rehab Referral to: [facility] - Medication Discharge Medications: Ambulatory Orders Quetiapine Fumarate [Seroquel -] 200 mg PO HS 02/05/19 traZODone HCL [Trazodone HCl] 50 mg PO HS 02/05/19 Mupirocin Ointment [Bactroban 2% Ointment -] 1 tube TP BID #1 applic 02/10/19 - Diagnosis (1) Cannabis dependence Current Visit: Yes Status: Chronic (2) Cocaine dependence Current Visit: Yes Status: Chronic Qualifiers: Substance use status: uncomplicated Qualified Code(s): F14.20 - Cocaine dependence, uncomplicated (3) Opioid dependence with withdrawal Current Visit: Yes Status: Chronic (4) Sedative, hypnotic or anxiolytic dependence with withdrawal, uncomplicated Current Visit: Yes Status: Chronic (5) Substance-induced sleep disorder Current Visit: Yes Status: Acute (6) Bipolar disorder Current Visit: Yes Status: Chronic (7) Hepatitis C virus infection cured after antiviral drug therapy Current Visit: Yes Status: Chronic (8) Nicotine dependence Current Visit: Yes Status: Chronic Qualifiers: Nicotine product type: cigarettes Substance use status: uncomplicated Qualified Code(s): F17.210 - Nicotine dependence, cigarettes, uncomplicated (9) Skin lesion due to intravenous drug abuse Current Visit: Yes Status: Chronic (10) Borderline personality disorder Current Visit: Yes Status: Ruled-out (11) History of bipolar disorder Current Visit: No Status: Chronic (12) Opioid dependence Current Visit: Yes Status: Chronic Qualifiers: Substance use status: uncomplicated Qualified Code(s): F11.20 - Opioid dependence, uncomplicated (13) Substance induced mood disorder Current Visit: No Status: Chronic - AMA Did Patient Leave Against Medical Advice: No
[2019-02-10 09:22] VITALS: BP 123/61; PULSE 89; TEMP 98.2
[2019-02-10] MEDS: MUPIROCIN 2% TOPICAL OINTMENT 22 GM TUBE TP SCH (10:00)
[2019-02-10] MEDS: PRENATAL VITAMINS W/ FOLIC ACID TABLET (FP) PO SCH (10:15)
[2019-02-10] MEDS: TOPIRAMATE 25 MG TABLET (FP) PO SCH (10:30)
--- NOTE | 2019-02-10 11:22 | PN ---
[facility] Progress Note Note: Patient is discharged today. Scripts for 30 days supply of medications(Seroquel 100 mg/hs, Trazadone 50 mg/hs, Topiramate 50 mg/day) are electronically transmitted to [facility] at [address] [place] [address]
[2019-02-10] MEDS: NICOTINE 21 MG/24 HOURS TOPICAL PATCH TD SCH (12:29)
== END 2019-02-10 12:14 | disposition home or self-care (01) | DRG 773 ==
LOC: YASAS 09:11 → Y6N 15:23
PROVIDERS: ADMIT Surgery; ATTEND Surgery
PROC: HZ2ZZZZ Detoxification Services for Substance Abuse Treatment (ICD-10-PCS; principal; 2019-02-05)
DX: F11.23 Opioid dependence with withdrawal (principal); F13.230 Sedative, hypnotic or anxiolytic dependence with withdrawal, uncomplicated; F14.20 Cocaine dependence, uncomplicated; F12.20 Cannabis dependence, uncomplicated; F17.210 Nicotine dependence, cigarettes, uncomplicated; F31.9 Bipolar disorder, unspecified; F60.3 Borderline personality disorder; F19.24 Other psychoactive substance dependence with psychoactive substance-induced mood disorder; F19.282 Other psychoactive substance dependence with psychoactive substance-induced sleep disorder; R00.1 Bradycardia, unspecified; Z86.19 Personal history of other infectious and parasitic diseases; L98.8 Other specified disorders of the skin and subcutaneous tissue
CPT/HCPCS: 36415; 80053; 85027; 86480; 86593

== ENCOUNTER 2020-03-15 20:33 | Inpatient (IN) | payer OTHER ==
--- OUTSIDE RECORDS SUMMARY | 2020-03-15 20:36 | XMS ---
:1980 Author Organization [facility] Support Name Relationship Address Phone JACKI BARNARD PARTNER [address] [place] [address] UE Unavailable Unavailable Unavailable LUZ BUTLER PARTNER [address] [place] [address] Re-disclosure Warning The records that you are about to access may contain information from federally- assisted alcohol or drug abuse programs. If such information is present, then the following federally mandated warning applies: This information has been disclosed to you from records protected by federal confidentiality rules (42 CFR part 2). The federal rules prohibit you from making any further disclosure of this information unless further disclosure is expressly permitted by the written consent of the person to whom it pertains or as otherwise permitted by 42 CFR part 2. A general authorization for the release of medical or other information is NOT sufficient for this purpose. The Federal rules restrict any use of the information to criminally investigate or prosecute any alcohol or drug abuse patient.The records that you are about to access may contain highly sensitive health information, the redisclosure of which is protected by Article 27-F of the [facility] Public Health law. If you continue you may haveaccess to information: Regarding HIV / AIDS; Provided by facilities licensed or operated by the [facility] Office of Mental Health; or Provided by the [facility] Office for People With Developmental Disabilities. If such information is present, then the following [facility] mandated warning applies: This information has been disclosed to you from confidential records which are protected by state law. State law prohibits you from making any further disclosure of this information without the specific written consent of the person to whom it pertains, or as otherwise permitted by law. Any unauthorized further disclosure in violation of state law may result in a fine or nursing home sentence or both. A general authorization for the release of medical or other information is NOT sufficient authorization for further disclosure. Insurance Providers Payer name Policy type Policy ID Covered Covered constitution party's Policy P caro / Coverage constitution party ID relationship to [employer]ila Inf ormation type avila BEACON [id number] SP [id number] MET[employer] BEACON [id number] SP [id number] METROPLUS
--- NOTE | 2020-03-15 20:51 | BHS.RME ---
2018 N Coronavirus Screen - COVID-19 Screening Questions Dx of COVID-19 or had a positive test in the last 4 weeks?: No Contact with known/suspected COVID patient in last 14 days?: No Any of these symptoms or contact with someone who has?: Body Aches, Headache, Congestion or runny nose, Nausea or vomiting, Diarrhea (Heroin withdrawal related symptoms) Substance Use & Tx History - Substance Use History Heroin Substance amount: 18 bags Frequency of use: Daily Substance route: Oral Date of Last Use: 03/15/20 - Last Treatment Date of last treatment: 02/05/2019- 02/10/2019 Treatment type: Substance Use Disorder ([facility]) Where was last treatment: Detox Physical/Psych/Mental Status - Behavior General Behavior: Increased activity (restlessness, agitation) Eye Contact: Excessive - Cooperativeness Cooperativeness: Cooperative - Thinking Thought Processes: Logical Thought content: Future oriented - Physical Health Problems Is patient presently having any pain?: Yes (body aches) Does patient presently have any injuries (include location): No Does patient currently have a fever: No COWS - Scale Resting Pulse: 1= [place] 81-100 Sweatin=Flushed/Facial Moisture Restless Observation: 1= Difficult to Sit Still Pupil Size: 1= Pupils >than Normal Bone or Joint Aches: 2= Severe Diffuse Aches Runny Nose/ Eye Tearin= Runny Nose/Eyes GI Upset > 30mins: 3= Vomiting/Diarrhea (vomiting x 3, no diarrhea) Tremor Observation: 2= Slight Tremor Visible Yawning Observation: 1= 1-2x During Session Anxiety or Irritability: 2=Irritable/Anxious Goose Flesh Skin: 3=Piloerection COWS Score: 20 Treatment Recommendation - Level of Care Level of Care: Opioid Treatment Program (OTP) (Heroin withdrawal symptoms)
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
[2020-03-15] MEDS ORDERED: MAGNESIUM CITRATE 300 ML BOTTLE PO PRN (21:05)
[2020-03-15] MEDS ORDERED: ACETAMINOPHEN 325 MG TABLET (FP) PO PRN ×2 (21:05)
[2020-03-15] MEDS ORDERED: ONDANSETRON *ODT* 4 MG TABLET SL PRN (21:05)
[2020-03-15] MEDS ORDERED: MAGNESIUM HYDROX 2400MG/30ML ORAL SUSPENSION 30 ML CUP PO PRN (21:05)
[2020-03-15] MEDS ORDERED: MENTHOL/PHENOL 1 EACH UD MM PRN (21:05)
[2020-03-15] MEDS ORDERED: hydrOXYzine PAMOATE 25 MG CAPSULE (FP) PO PRN (21:05)
[2020-03-15] MEDS ORDERED: IBUPROFEN 400 MG TABLET (FP) PO PRN (21:05)
[2020-03-15] MEDS ORDERED: METHOCARBAMOL 500 MG TABLET PO PRN (21:05)
[2020-03-15] MEDS ORDERED: MAG HYDROX/AL HYDROX/SIMETH 30 ML UNIT-DOSE CUP PO PRN (21:05)
[2020-03-15] MEDS ORDERED: BISMUTH SUBSALICYLATE 524 MG/30 ML UD PO PRN (21:05)
[2020-03-15] MEDS ORDERED: NICOTINE POLACRILEX 2 MG GUM BUC PRN (21:05)
[2020-03-15] MEDS ORDERED: TRIMETHOBENZAMIDE HCL 200MG/2ML INJ IM ONE (21:07)
[2020-03-15] MEDS ORDERED: cloNIDine HCL 0.1 MG TABLET PO PRN (21:07)
[2020-03-15] MEDS ORDERED: METHADONE HCL 10 MG TABLET (FOR DETOX USE ONLY) PO ONE (21:07)
[2020-03-15 21:22] VITALS: BMI 21.7
--- OUTSIDE RECORDS SUMMARY | 2020-03-15 21:44 | XMS ---
:1980 Author Organization [facility] Support Name Relationship Address Phone JACKI BARNARD PARTNER [address] [place] [address] UE Unavailable Unavailable Unavailable LUZ BUTLER PARTNER [address] [place] [address] Re-disclosure Warning The records that you are [...] is protected by Article 27-F of the [facility] Public Health law. If you continue you may haveaccess to information: Regarding HIV / AIDS; Provided by facilities licensed or operated by the [facility] Office of Mental Health; or Provided by the [facility] Office for People With Developmental Disabilities. If such information is present, then the following [facility] mandated warning applies: This information has been [...] law may result in a fine or long term sentence or both. A general authorization for the release of medical or other information is NOT sufficient authorization for further disclosure. Insurance Providers Payer name Policy type Policy ID Covered Covered green party's Policy P caro / Coverage green party ID relationship to [employer] Inf ormation type avila BEACON [id number] SP [id number] [employer] BEACON [id number] SP [id number] [employer]
--- NOTE | 2020-03-15 22:32 | PN ---
[facility] Progress Note Note: I was informed by nurse, Ms. Millssy Jose David that patient's temperature is T102. Vital Signs Temperature 102.0 F H 03/15/20 22:18 Pulse Rate 82 03/15/20 22:18 Respiratory Rate 18 03/15/20 22:18 Blood Pressure 125/62 03/15/20 22:18 O2 Sat by Pulse Oximetry (%) 98 03/15/20 22:18 Action: SARS-COV-2 RT-PCR ordered stat Transfer patient to room 664 Maintain isolation precautions
[2020-03-15] MEDS: THIAMINE HCL 100 MG TABLET (FP) PO SCH (23:07)
[2020-03-15] MEDS: BACITRACIN 0.9 GM PACKET TP SCH (23:07)
[2020-03-15] MEDS: MELATONIN 5 MG TABLETS PO SCH (23:34)
[2020-03-16] MEDS ORDERED: METHADONE HCL 5 MG TABLET (FOR DETOX USE ONLY) ONE (09:42)
[2020-03-16] MEDS ORDERED: METHADONE HCL 10 MG TABLET (FOR DETOX USE ONLY) ONE (09:42)
[2020-03-16] MEDS ORDERED: METHADONE (DETOX) 20 MG, METHADONE (DETOX) 5 MG PO ONE (10:00)
[2020-03-16 10:02] LABS: ALBUMIN 3.3 g/dl (3.4-5.0); BILIRUBIN,TOTAL 0.5 mg/dL (0.2-1); BLOOD UREA NITROGEN 14.7 mg/dL (7-18); CALCIUM 8.3 mg/dL (8.5-10.1); CREATININE 0.9 mg/dL (0.55-1.3); POTASSIUM 3.7 mmol/L (3.5-5.1); TOT PROT 6.8 g/dl (6.4-8.2)
[2020-03-16 10:10] LABS: HEMATOCRIT 34.9 % (35.4-49); HEMOGLOBIN 11.6 GM/dL (11.7-16.9); MCH 28.9 pg (25.7-33.7); MCHC 33.2 g/dl (32.0-35.9); MEAN CELL VOLUME 87.1 fl (80-96); MEAN PLT VOLUME 7.6 fl (7.5-11.1); PLATELET COUNT 309 K/MM3 (134-434); RBC 4.01 M/mm3 (4.00-5.60); RDW 13.9 % (11.9-15.9); WHITE BLOOD COUNT 4.6 K/mm3 (4.0-10.0)
--- NOTE | 2020-03-16 10:47 | PN ---
[facility] COWS - Scale Resting Pulse: 0= [place] 80 or Below Sweatin= Chills/Flushing Restless Observation: 1= Difficult to Sit Still Pupil Size: 0= Normal to Room Light Bone or Joint Aches: 2= Severe Diffuse Aches Runny Nose/ Eye Tearin= None GI Upset > 30mins: 0= None Tremor Observation of Outstretched Hands: 2= Slight Tremor Visible Yawning Observation: 0= None Anxiety or Irritability: 1=Feels Anxious/Irritable Goose Flesh Skin: 0=Smooth Skin COWS Score: 7 BHS Progress Note (SOAP) Subjective: irritable agitation chills i want to take a shower Objective: 03/16/20 10:46 Vital Signs Temperature 98 F 03/16/20 06:28 Pulse Rate 57 L 03/16/20 06:28 Respiratory Rate 18 03/16/20 06:28 Blood Pressure 120/62 03/16/20 06:28 O2 Sat by Pulse Oximetry (%) 100 03/16/20 06:28 Laboratory Tests 03/15/20 03/16/20 03/16/20 22:00 07:50 07:50 WBC 4.6 RBC 4.01 Hgb 11.6 L Hct 34.9 L MCV 87.1 MCH 28.9 MCHC 33.2 RDW 13.9 D Plt Count 309 MPV 7.6 Sodium Potassium Chloride Carbon Dioxide Anion Gap BUN Creatinine Est GFR (CKD-EPI)AfAm Est GFR (CKD-EPI)NonAf Random Glucose Calcium Total Bilirubin AST ALT Alkaline Phosphatase Total Protein Albumin Syphilis Serology Non-reactive SARS-CoV-2 (PCR) Positive 03/16/20 07:50 WBC RBC Hgb Hct MCV MCH MCHC RDW Plt Count MPV Sodium 138 Potassium 3.7 Chloride 104 Carbon Dioxide 29 Anion Gap 5 L BUN 14.7 Creatinine 0.9 Est GFR (CKD-EPI)AfAm 122.52 Est GFR (CKD-EPI)NonAf 105.71 Random Glucose 90 Calcium 8.3 L Total Bilirubin 0.5 AST 64 H ALT 62 H Alkaline Phosphatase 128 H Total Protein 6.8 Albumin 3.3 L Syphilis Serology SARS-CoV-2 (PCR) labs noted positive covid noted; isolation precaution maintained pt is aaox3 lying in bed no acute distress no respiratory distress noted pt was made aware of covid + result and was asked his last encountered before arriving to our facility. pt states I was in [place] and hopped on a bus to [facility] and [facility] this detox facility. pt was unaware of covid nor having covid symptoms prior to our facility. pt did state he was feeling feverish but associated that to his withdrawals. Assessment: 03/16/20 11:18 withdrawals Plan: continue detox continue on isolation precaution continue to monitor patient for any s/s of changes in his health regarding covid +
[2020-03-16] MEDS: BACITRACIN 0.9 GM PACKET TP SCH ×2 (10:57→21:42)
[2020-03-16] MEDS: PRENATAL VITAMINS W/ FOLIC ACID TABLET (FP) PO SCH (10:58)
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
[2020-03-16] MEDS: TOPIRAMATE 25 MG TABLET PO SCH (12:47)
[2020-03-16] MEDS ORDERED: traZODone HCL 50 MG TABLET (FP) PO SCH (22:00)
[2020-03-16] MEDS ORDERED: QUEtiapine FUMARATE 100 MG TABLET (FP) PO SCH (22:00)
[2020-03-16] MEDS: MELATONIN 5 MG TABLETS PO SCH (22:07)
[2020-03-16] MEDS: THIAMINE HCL 100 MG TABLET (FP) PO SCH (22:08)
[2020-03-17] MEDS ORDERED: METHADONE HCL 10 MG TABLET (FOR DETOX USE ONLY) PO ONE (10:00)
[2020-03-17] MEDS: BACITRACIN 0.9 GM PACKET TP SCH (10:37)
[2020-03-17] MEDS: PRENATAL VITAMINS W/ FOLIC ACID TABLET (FP) PO SCH (10:37)
[2020-03-17] MEDS: TOPIRAMATE 25 MG TABLET PO SCH (10:38)
[2020-03-17 11:56] VITALS: BP 116/65; PULSE 64; TEMP 98.7
[2020-03-17] MEDS ORDERED: FLU VACCINE (FLULAVAL) PF 60 MCG/0.5 ML SYRINGE 2020-2021 IM ONE (12:00)
[2020-03-17] MEDS ORDERED: PNEUMOC 13-VAL CONJ-DIP CRM/PF 0.5 ML DISP.SYRIN IM ONE (12:00)
--- NOTE | 2020-03-17 15:39 | DS ---
[facility] Detox Discharge Summary Admission Date: 03/15/20 Discharge Date: 03/17/20 - History Present History: Cannabis Dependence, Cocaine Dependence, Opioid Dependence Additional Comments: Despite efforts by [facility] and by Nursing and Counseling Staff to address Patient's medical needs / concerns, Patient does not wish to remain to complete detox regimen. Risks of leaving Detox Unit against medical advice and prior to completion of Detox Regimen explained to Patient. Risks of leaving Unit while having Positive COVID-19 status, including risks of transmission of virus to other people also explained to Patient. Patient advised to go immediately home and to wear mask at all times while leaving building and in public on way home. Patient also advised to quarantine at home for 14 days and to then have follow- up COVID-19 test performed and to then follow-up with Primary Care Medical Provider for further evaluation. Patient verbalized understanding of all information / recommendations presented to him prior to departure from Detox Unit. Patient did note that he currently lives alone. [facility] Flume Ride Operator Dr. Gutiérrez consulted on this matter. Later received notice from RN on Detox unit that while she was in process of attempting to arrange private medical transportation to bring Patient back home, Patient walked off Detox Unit on his own before arrangements for transportation could be completed. Pertinent Past History: Hep C (Treated), History of Bipolar Disorder, Nicotine Dependence, Anxiety, History of Depression. - Physical Exam Results Vital Signs: Vital Signs Temperature 98.7 F 03/17/20 09:40 Pulse Rate 64 03/17/20 09:40 Respiratory Rate 18 03/17/20 09:40 Blood Pressure 116/65 03/17/20 09:40 O2 Sat by Pulse Oximetry (%) 98 03/17/20 09:40 Pertinent Admission Physical Exam Findings: WITHDRAWAL SYMPTOMS. Laboratory Tests 03/15/20 03/16/20 03/16/20 22:00 07:50 07:50 WBC 4.6 RBC 4.01 Hgb 11.6 L Hct 34.9 L MCV 87.1 MCH 28.9 MCHC 33.2 RDW 13.9 D Plt Count 309 MPV 7.6 Sodium Potassium Chloride Carbon Dioxide Anion Gap BUN Creatinine Est GFR (CKD-EPI)AfAm Est GFR (CKD-EPI)NonAf Random Glucose Calcium Total Bilirubin AST ALT Alkaline Phosphatase Total Protein Albumin Syphilis Serology Non-reactive SARS-CoV-2 (PCR) Positive 03/16/20 07:50 WBC RBC Hgb Hct MCV MCH MCHC RDW Plt Count MPV Sodium 138 Potassium 3.7 Chloride 104 Carbon Dioxide 29 Anion Gap 5 L BUN 14.7 Creatinine 0.9 Est GFR (CKD-EPI)AfAm 122.52 Est GFR (CKD-EPI)NonAf 105.71 Random Glucose 90 Calcium 8.3 L Total Bilirubin 0.5 AST 64 H ALT 62 H Alkaline Phosphatase 128 H Total Protein 6.8 Albumin 3.3 L Syphilis Serology SARS-CoV-2 (PCR) Lab Results Noted. - Medication Discharge Medications: Ambulatory Orders Quetiapine Fumarate [Seroquel -] 200 mg PO HS 02/05/19 Mupirocin Ointment [Bactroban 2% Ointment -] 1 tube TP BID #1 applic 02/10/19 Quetiapine Fumarate [Seroquel -] 100 mg PO DAILY #30 tablet 02/10/19 Topiramate [Trokendi Xr] 50 mg PO DAILY #30 cap.er.24h 02/10/19 traZODone HCL [Trazodone HCl] 50 mg PO HS #30 tablet 02/10/19 - Diagnosis (1) Cannabis dependence Status: Acute (2) Cocaine dependence Status: Acute Qualifiers: Substance use status: uncomplicated Qualified Code(s): F14.20 - Cocaine dependence, uncomplicated (3) Substance-induced sleep disorder Status: Acute (4) Bipolar disorder Status: Chronic Qualifiers: Active/Remission status: remission status unspecified Qualified Code(s): F31.9 - Bipolar disorder, unspecified (5) Nicotine dependence Status: Chronic Qualifiers: Nicotine product type: cigarettes Substance use status: uncomplicated Qualified Code(s): F17.210 - Nicotine dependence, cigarettes, uncomplicated (6) Opioid dependence with withdrawal Status: Acute (7) Hepatitis C virus infection cured after antiviral drug therapy Status: Resolved (8) Lab test positive for detection of COVID-19 virus Status: Acute - AMA Did Patient Leave Against Medical Advice: Yes (Patient did not wish to remain to complete Detox Regimen.)
[2020-03-18] MEDS ORDERED: METHADONE (DETOX) 10 MG, METHADONE (DETOX) 5 MG PO ONE (10:00)
[2020-03-19] MEDS ORDERED: METHADONE HCL 10 MG TABLET (FOR DETOX USE ONLY) PO ONE (10:00)
[2020-03-20] MEDS ORDERED: METHADONE HCL 5 MG TABLET (FOR DETOX USE ONLY) PO ONE (06:00)
== END 2020-03-17 15:09 | disposition left against medical advice (07) | DRG 770 ==
LOC: YASAS 20:33 → Y6N 21:40
PROVIDERS: ADMIT Allergy & Immunology; ATTEND Allergy & Immunology
PROC: HZ2ZZZZ Detoxification Services for Substance Abuse Treatment (ICD-10-PCS; principal; 2020-03-15)
DX: F11.23 Opioid dependence with withdrawal (principal); F14.20 Cocaine dependence, uncomplicated; F12.20 Cannabis dependence, uncomplicated; F17.210 Nicotine dependence, cigarettes, uncomplicated; U07.1 COVID-19; F19.282 Other psychoactive substance dependence with psychoactive substance-induced sleep disorder; F41.9 Anxiety disorder, unspecified; F31.9 Bipolar disorder, unspecified; Z62.810 Personal history of physical and sexual abuse in childhood; Z86.19 Personal history of other infectious and parasitic diseases; Z91.5 Personal history of self-harm; Z88.8 Allergy status to other drugs, medicaments and biological substances; Z56.0 Unemployment, unspecified; Z59.0 Homelessness
CPT/HCPCS: 36415; 80053; 85027; 86780; C9803; U0003

== ENCOUNTER 2022-04-25 10:00 | Inpatient (IN) | payer OTHER ==
[2022-04-25 10:56] VITALS: RESP 18; BMI 20.9
[2022-04-25] MEDS ORDERED: BENZOCAINE/MENTHOL (CHLORASEPTIC ) LOZENGE MM PRN (11:22)
[2022-04-25] MEDS ORDERED: ONDANSETRON *ODT* 4 MG TABLET SL PRN (11:22)
[2022-04-25] MEDS ORDERED: NALOXONE HCL (KLOXXADO) 8 MG SPRAY NS PRN (11:22)
[2022-04-25] MEDS ORDERED: IBUPROFEN 400 MG TABLET (FP) PO PRN (11:22)
[2022-04-25] MEDS ORDERED: POLYETHYLENE GLYCOL (HEALTHYLAX) 3350 17 GM PACKET PO PRN (11:22)
[2022-04-25] MEDS ORDERED: IBUPROFEN 600 MG TABLET (FP) PO PRN (11:22)
[2022-04-25] MEDS ORDERED: BISMUTH SUBSALICYLATE 262 MG/15 ML BTL PO PRN (11:22)
[2022-04-25] MEDS ORDERED: hydrOXYzine PAMOATE 25 MG CAPSULE (FP) PO PRN (11:22)
[2022-04-25] MEDS ORDERED: ACETAMINOPHEN 325 MG TABLET (FP) PO PRN ×2 (11:22)
[2022-04-25] MEDS ORDERED: NICOTINE 10 MG CARTRIDGE (INHALER) IH PRN (11:22)
[2022-04-25] MEDS ORDERED: DICYCLOMINE HCL 10 MG CAPSULE PO PRN (11:22)
[2022-04-25] MEDS ORDERED: cloNIDine HCL 0.1 MG TABLET PO PRN (11:22)
[2022-04-25] MEDS ORDERED: METHOCARBAMOL 500 MG TABLET PO PRN (11:22)
[2022-04-25] MEDS ORDERED: MAG HYDROX/AL HYDROX/SIMETH 30 ML UNIT-DOSE CUP PO PRN (11:22)
[2022-04-25] MEDS ORDERED: methaDONE HCL 10 MG TABLET (FOR DETOX USE ONLY) PO ONE (11:22)
[2022-04-25] MEDS ORDERED: MAGNESIUM HYDROX 2400MG/30ML ORAL SUSPENSION 30 ML CUP PO PRN (11:22)
[2022-04-25] MEDS ORDERED: LOPERAMIDE HCL 2 MG CAPSULE PO PRN (11:22)
[2022-04-25] MEDS: NICOTINE 14 MG/24 HOURS TOPICAL PATCH TD SCH (12:25)
[2022-04-25] MEDS: PRENATAL VITAMINS W/ FOLIC ACID TABLET (FP) PO SCH (12:25)
[2022-04-25 15:21] LABS: HEMATOCRIT 23.9 % (35.4-49); HEMOGLOBIN 7.7 GM/dL (11.7-16.9); MCH 26.6 pg (25.7-33.7); MCHC 32.1 g/dl (32.0-35.9); MEAN CELL VOLUME 82.7 fl (80-96); MEAN PLT VOLUME 7.3 fl (7.5-11.1); PLATELET COUNT 398 10^3/uL (134-434); RBC 2.89 M/mm3 (4.00-5.60); RDW 15.6 % (11.9-15.9); WHITE BLOOD COUNT 6.4 K/mm3 (4.0-10.0)
[2022-04-25 15:39] LABS: CALCIUM 8.4 mg/dL (8.5-10.1)
[2022-04-25 15:40] LABS: ALBUMIN 2.4 g/dl (3.4-5.0); BLOOD UREA NITROGEN 32.2 mg/dL (7-18)
[2022-04-25 15:43] LABS: CREATININE 2.2 mg/dL (0.55-1.3)
[2022-04-25 15:44] LABS: BILIRUBIN,TOTAL 0.7 mg/dL (0.2-1); TOT PROT 6.1 g/dl (6.4-8.2)
[2022-04-25] MEDS ORDERED: MELATONIN 5 MG TABLETS PO SCH (22:00)
[2022-04-25] MEDS ORDERED: THIAMINE HCL 100 MG TABLET (FP) PO SCH (22:00)
[2022-04-25] MEDS: MUPIROCIN 2% TOPICAL OINTMENT 22 GM TUBE TP SCH (22:38)
[2022-04-26] MEDS: PRENATAL VITAMINS W/ FOLIC ACID TABLET (FP) PO SCH (10:35)
[2022-04-26] MEDS: MUPIROCIN 2% TOPICAL OINTMENT 22 GM TUBE TP SCH (10:39)
[2022-04-26] MEDS: NICOTINE 14 MG/24 HOURS TOPICAL PATCH TD SCH (10:39)
[2022-04-26 16:55] VITALS: BP 108/67; PULSE 73; TEMP 96.9
[2022-04-27] MEDS ORDERED: methaDONE HCL 10 MG TABLET (FOR DETOX USE ONLY) PO ONE (10:00)
[2022-04-29] MEDS ORDERED: methaDONE HCL 10 MG TABLET (FOR DETOX USE ONLY) PO ONE (10:00)
== END 2022-04-26 20:04 | disposition left against medical advice (07) | DRG 770 ==
LOC: YASAS 10:00 → Y3N 11:35
PROVIDERS: ADMIT Allergy & Immunology; ATTEND Surgery
PROC: HZ2ZZZZ Detoxification Services for Substance Abuse Treatment (ICD-10-PCS; principal; 2022-04-25)
DX: F11.23 Opioid dependence with withdrawal (principal); F14.20 Cocaine dependence, uncomplicated; F12.20 Cannabis dependence, uncomplicated; F17.210 Nicotine dependence, cigarettes, uncomplicated; F31.9 Bipolar disorder, unspecified; F41.9 Anxiety disorder, unspecified; U07.1 COVID-19; B18.2 Chronic viral hepatitis C; Z88.5 Allergy status to narcotic agent; Z59.02 Unsheltered homelessness
CPT/HCPCS: 36415; 80053; 85027; 86780; 87811; C9803-CS; U0003; U0005